=== PATIENT | male | born 1995 | race Native Hawaiian/Other Pacific Islander ===

== ENCOUNTER 2018-10-31 10:56 | Emergency (ER) | payer OTHER ==
[2018-10-31 11:09] VITALS: BP 122/90
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
== END 2018-10-31 11:52 | disposition home or self-care (01) ==
PROC: 2W28X4Z Dressing of Right Upper Extremity using Bandage (ICD-10-PCS; principal; 2018-10-31)
DX: T23.221A Burn of second degree of single right finger (nail) except thumb, initial encounter (principal); X08.8XXA Exposure to other specified smoke, fire and flames, initial encounter; Y93.89 Activity, other specified; Y92.9 Unspecified place or not applicable; Y99.9 Unspecified external cause status